=== PATIENT | male | born 1960 | race American Indian/Alaskan Native ===

== ENCOUNTER 2021-07-13 08:14 | Outpatient (CLI) | payer OTHER ==
[2021-07-13 09:21] LABS: Blood Urea Nitrogen 9 mg/dL (9-20)
--- NOTE | 2021-07-13 10:18 | Cat Scan Report ---
CT ABDOMEN WITH CONTRAST HISTORY: ELEVATED LIVER FUNCTION TRIPHASIC 3 PHASE LIVER OMNI 300 100 ML. COMPARISON: None. TECHNIQUE: CT images of the abdomen were obtained following administration of 100 cc of Omnipaque 300 . Three-phase liver protocol. Sagittal and coronal reformatted images. All CT scans at this location are performed using CT dose reduction for ALARA by means of automated exposure control. CONTRAST: 100 ml of intravenous contrast administered. FINDINGS: Abdomen: The liver appears normal size, contour and density. No significant parenchymal disease is a ppreciated. Tiny 5 mm cyst in the left hepatic lobe is noted. No suspicious liver mass. The gallbladd er and biliary system are unremarkable. The pancreas is within normal limits. Normal spleen, kidneys, adrenal glands and visualized bowel loops. Normal appendix. The vascular structures are patent and w ithout abnormality. No adenopathy, ascites or fluid collection. Lungs/bones: The lung bases are clear. Moderate multilevel thoracolumbar spondylosis is noted in the visualized spine. IMPRESSION: No significant abnormality is identified. Signer Name: Dwayne Ross Jr, MD Signed: 07/13/2021 10:14 AM Workstation Name: [id number]
== END 2021-07-13 08:15 | disposition home or self-care (01) ==
LOC: CT 08:14
PROVIDERS: ATTEND Family Medicine
DX: K76.89 Other specified diseases of liver (principal); M47.815 Spondylosis without myelopathy or radiculopathy, thoracolumbar region
CPT/HCPCS: 36415; 74160; 82565; 84520; Q9967